=== PATIENT | female | born 1930 | race Caucasian/White ===

== ENCOUNTER 2016-07-19 08:15 | Inpatient (IN) | payer MEDICARE, OTHER ==
[~2016-07-19] VITALS: Ht 144.8 cm; Wt 54.4 kg
[~2016-07-19 08:15] MED LIST: ACTONEL35 MG PO; AMLODIPINE BESY10 MG PO; ASPIRIN325 MG PO; FIBERCON625 MG PO; OMEPRAZOLE20 M1 PO; SYNTHROID25 MCG PO; TRAMADOL HCL50 MG PO; ZETIA10 MG PO
[2016-08-02] MEDS ORDERED: MIRALAX17 GM PO (08:32)
[2016-08-02] MEDS ORDERED: HYDROCODON-ACE1 EAC6 PO (08:33)
[2016-08-02] MEDS ORDERED: NORVASC 5 MG TAB5 MG PO (08:44)
[2016-08-05] MEDS ORDERED: NORCO 5-325 TA1 EACH PO (06:58)
[2016-08-05] MEDS ORDERED: IRON160 MG PO (06:59)
[2016-08-06 05:06] LABS: HEMOGLOBIN 11.5 gm/dl (12.3-15.3); RED BLOOD COUNT 4.05 M/UL (4.00-5.10); WHITE BLOOD COUNT 9.8 K/UL (4.5-11.0)
[2016-08-06 05:20] LABS: BUN/CREATININE RATIO 8 (0-10)
[2016-08-07 04:41] LABS: HEMOGLOBIN 11.1 gm/dl (12.3-15.3); RED BLOOD COUNT 3.91 M/UL (4.00-5.10); WHITE BLOOD COUNT 10.2 K/UL (4.5-11.0)
[2016-08-07 04:56] LABS: BUN/CREATININE RATIO 11 (0-10)
[2016-08-08 04:46] LABS: HEMOGLOBIN 10.5 gm/dl (12.3-15.3); RED BLOOD COUNT 3.7 M/UL (4.00-5.10); WHITE BLOOD COUNT 8.8 K/UL (4.5-11.0)
[2016-08-08 05:11] LABS: BUN/CREATININE RATIO 11 (0-10)
== END 2016-08-08 13:15 | disposition other institution (70) | DRG 470 ==
LOC: ZOBSOF 08-05 06:09 → M/S 08-05 13:00
PROVIDERS: ADMIT Orthopaedic Surgery
PROC: 0SRD0J9 Replacement of Left Knee Joint with Synthetic Substitute, Cemented, Open Approach (ICD-10-PCS; principal; 2016-08-05 08:15)
DX: M17.0 Bilateral primary osteoarthritis of knee (principal); M71.22 Synovial cyst of popliteal space [Baker], left knee; I10 Essential (primary) hypertension; E78.5 Hyperlipidemia, unspecified; E89.0 Postprocedural hypothyroidism; E36.8 Other intraoperative complications of endocrine system; Y83.6 Removal of other organ (partial) (total) as the cause of abnormal reaction of the patient, or of later complication, without mention of misadventure at the time of the procedure; Z96.1 Presence of intraocular lens; Z96.641 Presence of right artificial hip joint; Z79.82 Long term (current) use of aspirin; Z79.891 Long term (current) use of opiate analgesic; Z79.899 Other long term (current) drug therapy; Z88.8 Allergy status to other drugs, medicaments and biological substances; Z88.7 Allergy status to serum and vaccine; Z88.5 Allergy status to narcotic agent; Z82.49 Family history of ischemic heart disease and other diseases of the circulatory system; Z83.3 Family history of diabetes mellitus
CPT/HCPCS: 36415; 73560; 80048; 80051; 82565; 84520; 85027; 86850; 86900; 86901; 97110; 97116; 97530; 97535; C1776; J0690; J2250; J2405; J2795; J3010; J3370; J7050; J7120

== ENCOUNTER → 2016-07-22 | Outpatient (CLI) | payer MEDICARE, OTHER ==
[~2016-07-22] MED LIST changes: +HYDROCODON-ACE1 EAC6 PO; +IRON160 MG PO; +MIRALAX17 GM PO; +NORCO 5-325 TA1 EACH PO; +NORVASC 5 MG TAB5 MG PO
[2016-07-22 08:46] LABS: HEMOGLOBIN 13.6 gm/dl (12.3-15.3); RED BLOOD COUNT 4.71 M/UL (4.00-5.10)
[2016-07-22 09:03] LABS: BUN/CREATININE RATIO 20 (0-10)
== END ==
LOC: OPSV2 07-10 12:00 → EDSTATUS 08:30
PROVIDERS: Orthopaedic Surgery
DX: Z01.812 Encounter for preprocedural laboratory examination (principal); Z01.810 Encounter for preprocedural cardiovascular examination; M17.12 Unilateral primary osteoarthritis, left knee; I10 Essential (primary) hypertension; Z88.5 Allergy status to narcotic agent
CPT/HCPCS: 36415; 80048; 81001; 85027; 87081; 87086; 93005